=== PATIENT | male | born 1950 ===

== ENCOUNTER → 2022-05-09 10:30 | Outpatient (CLI) | payer MEDICARE, SELFPAY ==
[2022-05-11 14:51] LABS: Fecal Immunochemical Test Negative (Negative)
== END ==
PROVIDERS: PCP Family Medicine; Visit Provider Family Medicine
DX: Z00.00 Encounter for general adult medical examination without abnormal findings (principal); Z80.0 Family history of malignant neoplasm of digestive organs
CPT/HCPCS: 82274